=== PATIENT | male | born 1975 | race African-American/Black ===

== ENCOUNTER 2023-05-20 14:10 | Inpatient (IN) | payer OTHER ==
[~2023-05-20] VITALS: Ht 172.7 cm; Wt 82.3 kg
[2023-05-20] MEDS ORDERED: HYDROcodone-ACET 10/325MG TAB PO PRN (15:30)
[2023-05-20] MEDS ORDERED: MORPHINE SULFATE INJ 2 MG/ml SYRG IV PRN (15:30)
[2023-05-20] MEDS ORDERED: NITROGLYCERIN 0.4 MG SL TAB SL PRN (15:30)
[2023-05-20] MEDS ORDERED: APIXABAN 5 MG TAB PO SCH (15:34)
[2023-05-20] MEDS: APIXABAN 5 MG TAB PO SCH ×2 (19:40→21:16)
[2023-05-20 20:48] VITALS: BP 141/92
[2023-05-20 20:49] VITALS: BP 141/92
[2023-05-20 22:00] VITALS: BP 141/92
[2023-05-21 05:00] VITALS: BP 120/72
[2023-05-21 08:00] VITALS: BP 131/76
[2023-05-21] MEDS: APIXABAN 5 MG TAB PO SCH ×2 (08:31→21:10)
[2023-05-21] MEDS: PANTOPRAZOLE 40 MG TAB PO SCH (08:31)
[2023-05-21 12:00] VITALS: BP 109/74
[2023-05-21 15:29] LABS: Basophils # (auto) 0 10 ^3/uL (0-0.2); Basophils % (auto) 0.5 % (0.0-2.0); Eosinophils # (auto) 0 10 ^3/uL (0-0.8); Eosinophils % (auto) 1.4 % (0.0-7.0); Hematocrit 40.6 % (41.0-53.0); Hemoglobin 13.4 g/dL (13.5-17.5); Lymphocytes # (auto) 1.3 10 ^3/uL (0.4-5.4); Lymphocytes % (auto) 36.9 % (10.0-50.0); Mean Corpuscular Hemoglobin 28.5 pg (28.0-32.0); Mean Corpuscular Hgb Conc. 33.1 g/dL (32.0-36.0); Mean Corpuscular Volume 86.2 fL (80.0-100.0); Monocytes # (auto) 0.3 10 ^3/uL (0-1.3); Monocytes % (auto) 8.5 % (0.0-12.0); Neutrophils # (auto) 1.9 10 ^3/uL (1.6-8.6); Neutrophils % (auto) 52.7 % (37.0-80.0); Nucleated Red Blood Cells % 0.1 %; Red Blood Cells 4.71 10^6/uL (4.5-5.90); Red Cell Distribution Width 15.6 % (11.8-14.3); White Blood Cell 3.6 10^3/uL (4.4-10.8)
[2023-05-21] MEDS ORDERED: IOHEXOL 350 MG/ML 100ML IJ ONE (15:48)
[2023-05-21 15:52] LABS: Albumin 3.5 g/dL (3.4-5.0); Potassium 4.4 mmol/L (3.5-5.1)
[2023-05-21 15:55] LABS: BUN/Creatinine Ratio 13.1 (10.0-20.0); Bilirubin, Total 0.6 mg/dL (0.2-1.0); Total Protein 7.1 g/dL (6.4-8.2)
[2023-05-21 16:00] VITALS: BP 120/79
[2023-05-21 20:00] VITALS: BP 117/80
[2023-05-21 22:00] VITALS: BP 117/80
[2023-05-22 05:00] VITALS: BP 124/77
[2023-05-22 09:00] VITALS: BP 119/76
[2023-05-22] MEDS: PANTOPRAZOLE 40 MG TAB PO SCH (09:02)
[2023-05-22] MEDS: APIXABAN 5 MG TAB PO SCH (09:02)
[2023-05-22 14:00] VITALS: BP 109/72
[2023-05-22] MEDS ORDERED: APIX5TAB PO ×2 (16:32)
[2023-05-22 17:00] VITALS: BP 115/77
[2023-05-22] MEDS ORDERED: APIXABAN 5 MG TAB PO ONE (18:00)
[2023-05-27] MEDS ORDERED: APIXABAN 5 MG TAB PO SCH (10:00)
== END 2023-05-22 19:10 | DRG 299 ==
LOC: ER 14:10 → EEVIPCON 14:10 → OVERFLOW 15:26 → CENTRAL 19:51 → TELE-CENTR 05-21 17:59
PROVIDERS: ADMIT Internal Medicine; ATTEND Internal Medicine
DX: I82.402 Acute embolism and thrombosis of unspecified deep veins of left lower extremity (principal); I26.99 Other pulmonary embolism without acute cor pulmonale; F12.90 Cannabis use, unspecified, uncomplicated; R07.1 Chest pain on breathing; E66.3 Overweight; Z68.27 Body mass index [BMI] 27.0-27.9, adult; Z83.2 Family history of diseases of the blood and blood-forming organs and certain disorders involving the immune mechanism; Z83.3 Family history of diabetes mellitus
CPT/HCPCS: 36415; 71275; 80053; 85025; 93971; G0378

== ENCOUNTER 2023-06-17 19:26 | Inpatient (IN) | payer OTHER ==
[~2023-06-17] VITALS: Ht 172.7 cm; Wt 81.6 kg
[~2023-06-17 19:26] MED LIST: APIX5TAB PO
[2023-06-17 20:45] LABS: Albumin 3.9 g/dL (3.4-5.0); Calcium 9.1 mg/dL (8.5-10.1); INR 1.16 (0.9-1.15); Partial Thromboplastin Time 27.8 SEC (24.5-34.5); Potassium 4.4 mmol/L (3.5-5.1); Prothrombin Time 12.1 sec (9.3-11.8)
[2023-06-17 20:48] LABS: BUN/Creatinine Ratio 14.3 (10.0-20.0); Bilirubin, Total 0.5 mg/dL (0.2-1.0); Total Protein 7.8 g/dL (6.4-8.2)
[2023-06-17 22:00] LABS: Basophils # (auto) 0 10 ^3/uL (0-0.2); Basophils % (auto) 0.9 % (0.0-2.0); Eosinophils # (auto) 0 10 ^3/uL (0-0.8); Hematocrit 40.2 % (41.0-53.0); Hemoglobin 13.5 g/dL (13.5-17.5); Lymphocytes # (auto) 1.6 10 ^3/uL (0.4-5.4); Mean Corpuscular Hemoglobin 28.8 pg (28.0-32.0); Mean Corpuscular Hgb Conc. 33.6 g/dL (32.0-36.0); Mean Corpuscular Volume 85.7 fL (80.0-100.0); Monocytes # (auto) 0.4 10 ^3/uL (0-1.3); Monocytes % (auto) 9.7 % (0.0-12.0); Neutrophils # (auto) 1.9 10 ^3/uL (1.6-8.6); Neutrophils % (auto) 48.4 % (37.0-80.0); Nucleated Red Blood Cells % 0.2 %; White Blood Cell 3.9 10^3/uL (4.4-10.8)
[2023-06-17 22:10] VITALS: PULSE 66; RESP 17; O2SAT 96
[2023-06-18 06:50] LABS: Basophils # (auto) 0 10 ^3/uL (0-0.2); Basophils % (auto) 0.4 % (0.0-2.0); Eosinophils # (auto) 0 10 ^3/uL (0-0.8); Eosinophils % (auto) 1.4 % (0.0-7.0); Hemoglobin 13.7 g/dL (13.5-17.5); Lymphocytes # (auto) 1.3 10 ^3/uL (0.4-5.4); Lymphocytes % (auto) 48.7 % (10.0-50.0); Mean Corpuscular Hemoglobin 29.4 pg (28.0-32.0); Mean Corpuscular Hgb Conc. 34.3 g/dL (32.0-36.0); Mean Corpuscular Volume 85.5 fL (80.0-100.0); Monocytes # (auto) 0.3 10 ^3/uL (0-1.3); Monocytes % (auto) 10.1 % (0.0-12.0); Neutrophils # (auto) 1.1 10 ^3/uL (1.6-8.6); Neutrophils % (auto) 39.4 % (37.0-80.0); Nucleated Red Blood Cells % 0.7 %; Red Blood Cells 4.68 10^6/uL (4.5-5.90); Red Cell Distribution Width 14.9 % (11.8-14.3); White Blood Cell 2.7 10^3/uL (4.4-10.8)
[2023-06-18] MEDS ORDERED: HEPARIN SODIUM (PORCINE) 5000 UNITS/ML 1ML VIAL IV ONE (07:00)
[2023-06-18] MEDS ORDERED: HEPARIN DRIP/D5W 100UNITS/ML 250 ML IV SCH (07:00)
[2023-06-18 07:08] LABS: INR 1.17 (0.9-1.15); Partial Thromboplastin Time 27.7 SEC (24.5-34.5); Prothrombin Time 12.2 sec (9.3-11.8)
[2023-06-18] MEDS ORDERED: IOHEXOL 350 MG/ML 100ML IJ ONE (07:26)
[2023-06-18] MEDS ORDERED: HYDROcodone-ACET 10/325MG TAB PO PRN (07:30)
[2023-06-18] MEDS: PANTOPRAZOLE 40 MG TAB PO SCH (10:37)
[2023-06-18 14:12] LABS: INR 1.19 (0.9-1.15); Prothrombin Time 12.4 sec (9.3-11.8)
[2023-06-18 14:15] LABS: Partial Thromboplastin Time 108.2 SEC (24.5-34.5)
[2023-06-18 17:00] VITALS: BP 129/82; PULSE 86; RESP 19; TEMP 98.7; O2SAT 97
[2023-06-18 17:52] VITALS: RESP 18; O2SAT 97
[2023-06-18 20:00] VITALS: PULSE 73; PULSE 78; O2SAT 96
[2023-06-18 21:23] LABS: INR 1.18 (0.9-1.15); Partial Thromboplastin Time 39.9 SEC (24.5-34.5); Prothrombin Time 12.3 sec (9.3-11.8)
[2023-06-18 22:00] VITALS: BP 118/85; PULSE 78; RESP 24; TEMP 98.1; O2SAT 96
[2023-06-19 04:56] VITALS: BP 115/67; PULSE 68; RESP 22; TEMP 98.6; O2SAT 96
[2023-06-19] MEDS: HEPARIN DRIP/D5W 100UNITS/ML 250 ML IV SCH (05:31)
[2023-06-19 08:00] VITALS: BP 119/83; PULSE 58; PULSE 71; PULSE 78; RESP 20; TEMP 98.5; O2SAT 96; O2SAT 98
[2023-06-19] MEDS: PANTOPRAZOLE 40 MG TAB PO SCH (09:44)
[2023-06-19 09:50] LABS: Basophils # (auto) 0 10 ^3/uL (0-0.2); Basophils % (auto) 0.4 % (0.0-2.0); Eosinophils # (auto) 0.1 10 ^3/uL (0-0.8); Eosinophils % (auto) 2.2 % (0.0-7.0); Hematocrit 42.4 % (41.0-53.0); Hemoglobin 14.1 g/dL (13.5-17.5); Lymphocytes # (auto) 0.9 10 ^3/uL (0.4-5.4); Lymphocytes % (auto) 30.4 % (10.0-50.0); Mean Corpuscular Hemoglobin 28.7 pg (28.0-32.0); Mean Corpuscular Hgb Conc. 33.3 g/dL (32.0-36.0); Mean Corpuscular Volume 86.4 fL (80.0-100.0); Monocytes # (auto) 0.3 10 ^3/uL (0-1.3); Monocytes % (auto) 9.4 % (0.0-12.0); Neutrophils # (auto) 1.6 10 ^3/uL (1.6-8.6); Neutrophils % (auto) 57.6 % (37.0-80.0); Nucleated Red Blood Cells % 0.2 %; Red Blood Cells 4.91 10^6/uL (4.5-5.90); Red Cell Distribution Width 15.1 % (11.8-14.3); White Blood Cell 2.8 10^3/uL (4.4-10.8)
[2023-06-19 10:12] LABS: INR 1.18 (0.9-1.15); Prothrombin Time 12.3 sec (9.3-11.8)
[2023-06-19 12:00] VITALS: BP 111/72; PULSE 50; RESP 20; TEMP 97.9; O2SAT 99
[2023-06-19 16:00] VITALS: BP 102/62; PULSE 50; RESP 20; TEMP 98; O2SAT 96
[2023-06-19 18:18] LABS: INR 1.15 (0.9-1.15); Partial Thromboplastin Time 67.8 SEC (24.5-34.5)
[2023-06-19 20:00] VITALS: PULSE 67; PULSE 71; RESP 18; O2SAT 96
[2023-06-19 22:00] VITALS: BP 114/69; PULSE 71; RESP 18; TEMP 97.6; O2SAT 96
[2023-06-20] MEDS: HEPARIN DRIP/D5W 100UNITS/ML 250 ML IV SCH (02:18)
[2023-06-20 05:00] VITALS: BP 108/66; PULSE 49; RESP 16; TEMP 98; O2SAT 96
[2023-06-20 05:40] LABS: Basophils # (auto) 0 10 ^3/uL (0-0.2); Basophils % (auto) 0.3 % (0.0-2.0); Eosinophils # (auto) 0.1 10 ^3/uL (0-0.8); Eosinophils % (auto) 1.9 % (0.0-7.0); Hematocrit 41.7 % (41.0-53.0); Hemoglobin 13.8 g/dL (13.5-17.5); Lymphocytes # (auto) 1.8 10 ^3/uL (0.4-5.4); Lymphocytes % (auto) 51.5 % (10.0-50.0); Mean Corpuscular Hemoglobin 28.7 pg (28.0-32.0); Monocytes # (auto) 0.3 10 ^3/uL (0-1.3); Monocytes % (auto) 9.7 % (0.0-12.0); Neutrophils # (auto) 1.3 10 ^3/uL (1.6-8.6); Neutrophils % (auto) 36.6 % (37.0-80.0); Nucleated Red Blood Cells % 0.2 %; Red Cell Distribution Width 15.2 % (11.8-14.3); White Blood Cell 3.5 10^3/uL (4.4-10.8)
[2023-06-20 08:00] VITALS: BP 132/73; PULSE 56; PULSE 89; PULSE 91; RESP 20; TEMP 98.5; O2SAT 96; O2SAT 97
[2023-06-20] MEDS: PANTOPRAZOLE 40 MG TAB PO SCH (10:18)
[2023-06-20 10:32] LABS: Hepatitis B Surface Antigen Negative (Negative); Hepatitis C Antibody Negative (Negative)
[2023-06-20 12:00] VITALS: BP 117/72; PULSE 62; RESP 20; TEMP 98.7; O2SAT 97
[2023-06-20 16:00] VITALS: BP 109/74; PULSE 58; RESP 20; TEMP 97.4; O2SAT 97
[2023-06-20 19:18] LABS: INR 1.21 (0.9-1.15); Prothrombin Time 12.5 sec (9.3-11.8)
[2023-06-20 19:37] LABS: Partial Thromboplastin Time > 139.0 SEC (24.5-34.5)
[2023-06-20 20:00] VITALS: PULSE 78; PULSE 99; RESP 20; O2SAT 98
[2023-06-20 22:00] VITALS: BP 116/78; PULSE 78; RESP 20; TEMP 98.7; O2SAT 98
[2023-06-21] MEDS: HEPARIN DRIP/D5W 100UNITS/ML 250 ML IV SCH ×3 (01:06→05:45)
[2023-06-21 02:40] LABS: Basophils # (auto) 0 10 ^3/uL (0-0.2); Basophils % (auto) 0.6 % (0.0-2.0); Eosinophils # (auto) 0.1 10 ^3/uL (0-0.8); Eosinophils % (auto) 1.6 % (0.0-7.0); Hematocrit 40.5 % (41.0-53.0); Hemoglobin 13.5 g/dL (13.5-17.5); Lymphocytes # (auto) 1.8 10 ^3/uL (0.4-5.4); Lymphocytes % (auto) 52.7 % (10.0-50.0); Mean Corpuscular Hemoglobin 28.7 pg (28.0-32.0); Mean Corpuscular Hgb Conc. 33.3 g/dL (32.0-36.0); Mean Corpuscular Volume 86.2 fL (80.0-100.0); Monocytes # (auto) 0.3 10 ^3/uL (0-1.3); Monocytes % (auto) 8.5 % (0.0-12.0); Neutrophils # (auto) 1.3 10 ^3/uL (1.6-8.6); Neutrophils % (auto) 36.6 % (37.0-80.0); Nucleated Red Blood Cells % 0.4 %; Red Blood Cells 4.69 10^6/uL (4.5-5.90); Red Cell Distribution Width 14.9 % (11.8-14.3); White Blood Cell 3.4 10^3/uL (4.4-10.8)
[2023-06-21 05:00] VITALS: BP 120/71; PULSE 52; RESP 18; TEMP 97.8; O2SAT 93
[2023-06-21 08:00] VITALS: PULSE 64; O2SAT 96
[2023-06-21 08:30] VITALS: BP 118/72; PULSE 57; RESP 18; TEMP 97.3; O2SAT 97
[2023-06-21] MEDS: PANTOPRAZOLE 40 MG TAB PO SCH (10:37)
[2023-06-21 11:57] LABS: INR 1.18 (0.9-1.15); Partial Thromboplastin Time 68.6 SEC (24.5-34.5); Prothrombin Time 12.3 sec (9.3-11.8)
[2023-06-21 13:00] VITALS: BP 114/76; PULSE 67; RESP 17; TEMP 98.4; O2SAT 97
[2023-06-21 16:58] VITALS: BP 109/60; PULSE 64; RESP 18; TEMP 98.1; O2SAT 100
[2023-06-21 17:14] LABS: INR 1.19 (0.9-1.15); Partial Thromboplastin Time 58.6 SEC (24.5-34.5); Prothrombin Time 12.4 sec (9.3-11.8)
[2023-06-21] MEDS ORDERED: APIXABAN 5 MG TAB PO ONE (17:45)
[2023-06-21 18:35] VITALS: TEMP 36.7
== END 2023-06-21 20:16 | DRG 299 ==
LOC: EEVIPCON 19:26 → ER 19:26 → OVERFLOW 06-18 05:51 → WEST WING 06-18 17:10 → TELE-WESTW 06-18 22:36
PROVIDERS: ADMIT Internal Medicine; ATTEND Internal Medicine
DX: I82.432 Acute embolism and thrombosis of left popliteal vein (principal); I26.99 Other pulmonary embolism without acute cor pulmonale; Z83.2 Family history of diseases of the blood and blood-forming organs and certain disorders involving the immune mechanism; Z83.3 Family history of diabetes mellitus; Z86.711 Personal history of pulmonary embolism; Z86.718 Personal history of other venous thrombosis and embolism
CPT/HCPCS: 36415; 71045; 71275; 80053; 83880; 84484; 85025; 85610; 85730; 86803; 87081; 87340; 93971; G0378